=== PATIENT | male | born 1970 | race Caucasian/White ===

== ENCOUNTER 2016-06-13 12:33 | Emergency (ER) | payer BC, OTHER ==
[~2016-06-13] VITALS: Ht 177.8 cm; Wt 108.9 kg
[~2016-06-13 12:33] MED LIST: ALBI30PE SQ; GLYB5TAB7 PO; METF-494 PO
[2016-06-13] MEDS ORDERED: GLIP10TA11 PO (12:46)
[2016-06-13] MEDS ORDERED: KETOROLAC TROMETHAMINE 60 MG INJ IM ONE ×2 (13:00→13:10)
[2016-06-13] MEDS ORDERED: HYDROCODONE/APAP 7.5-325MG TABLET PO PRN (13:00)
[2016-06-13] MEDS ORDERED: HYDROCODONE/APAP 7.5-325MG TABLET ONE (13:10)
--- NOTE | 2016-06-13 15:23 | NUR ---
Patient discharged to home in stable conditon. Written and verbal after care instructions given. Patient verbalizes understanding of instructions.pt walks in steady gait.
[2016-06-13 15:24] VITALS: BP 129/77
== END 2016-06-13 15:25 | disposition home or self-care (01) ==
LOC: ER 12:33
DX: S16.1XXA Strain of muscle, fascia and tendon at neck level, initial encounter (principal); S29.012A Strain of muscle and tendon of back wall of thorax, initial encounter; S39.012A Strain of muscle, fascia and tendon of lower back, initial encounter; E11.9 Type 2 diabetes mellitus without complications; R51 Headache; F17.200 Nicotine dependence, unspecified, uncomplicated; F12.10 Cannabis abuse, uncomplicated; V89.2XXA Person injured in unspecified motor-vehicle accident, traffic, initial encounter; Y93.89 Activity, other specified; Y99.8 Other external cause status; Y92.89 Other specified places as the place of occurrence of the external cause
CPT/HCPCS: 72072; 72100; A4663; J1885

== ENCOUNTER 2016-12-06 08:42 | Emergency (ER) | payer BC, OTHER ==
[~2016-12-06] VITALS: Ht 175.3 cm; Wt 108.9 kg
[~2016-12-06 08:42] MED LIST changes: +GLIP10TA11 PO
[2016-12-06] MEDS ORDERED: IV NS 1000 ML 1,000 ML IV ONE (09:45)
[2016-12-06] MEDS ORDERED: ONDANSETRON IV *ER 4 MG/2 ML VIAL IV ONE (10:10)
[2016-12-06] MEDS ORDERED: ONDANSETRON 4 MG/2 ML VIAL ONE (10:31)
[2016-12-06 10:58] LABS: BASOPHILS # (AUTO) 0.1 K/uL (0.0-8.0); BASOPHILS % (AUTO) 0.4 % (0.0-2.0); HEMATOCRIT 47.2 % (36.7-47.1); HEMOGLOBIN 15.9 g/dL (12.5-16.3); LYMPHOCYTES # (AUTO) 1.9 K/uL (20.0-40.0); MEAN CORPUSCULAR HGB CONC 34 g/dL (32.5-36.3); MEAN CORPUSCULAR VOLUME 89.1 fL (73.0-96.2); MONOCYTES # (AUTO) 1.1 K/uL (2.0-10.0); MONOCYTES % (AUTO) 6.2 % (0.0-11.0); NEUTROPHILS # (AUTO) 14.4 K/uL (1.8-8.9); NEUTROPHILS % (AUTO) 82.4 % (38.5-71.5); PLATELET COUNT (AUTO) 219 K/uL (152-348); RED BLOOD CELL COUNT(AUTO) 5.29 MIL/uL (4.06-5.63); WHITE BLOOD COUNT (AUTO) 17.5 K/uL (3.6-10.2)
--- NOTE | 2016-12-06 11:02 | NUR ---
Patient is resting comfortably on gurney & seen using his personal electronic device, NAD
[2016-12-06 11:14] LABS: CREATININE 1.1 mg/dL (0.6-1.3); POTASSIUM 3.8 mmol/L (3.5-5.1)
[2016-12-06] MEDS ORDERED: KETOROLAC TROMETHAMINE 30 MG INJ IVP ONE (11:15)
--- NOTE | 2016-12-06 11:20 | NUR ---
Lights dimmed & extra warm blankets on, safety and comfort measures maintained.
[2016-12-06 11:23] LABS: BILIRUBIN,TOTAL 0.6 mg/dL (0.2-1.0); TOTAL PROTEIN, SERUM 7.4 g/dL (6.4-8.2)
[2016-12-06] MEDS ORDERED: KETOROLAC TROMETHAMINE 30 MG INJ ONE (11:27)
--- NOTE | 2016-12-06 12:19 | NUR ---
IV removed. Catheter intact and site benign. Pressure and 4x4 gauze applied to site. No bleeding noted. Patient discharged to home in stable conditon. Written and verbal after care instructions given to patient. Patient verbalizes understanding of instructions.
== END 2016-12-06 12:20 | disposition home or self-care (01) ==
LOC: ER 08:42
DX: S00.83XA Contusion of other part of head, initial encounter (principal); E11.9 Type 2 diabetes mellitus without complications; F17.200 Nicotine dependence, unspecified, uncomplicated; Y08.89XA Assault by other specified means, initial encounter; Y93.89 Activity, other specified; Y92.9 Unspecified place or not applicable; Y99.9 Unspecified external cause status
CPT/HCPCS: 36415; 70450; 70486; 71010; 85025; 93005; A4663; J1885; J2405; J7030

== ENCOUNTER 2017-07-11 02:27 | Emergency (ER) | payer OTHER ==
[~2017-07-11] VITALS: Ht 177.8 cm; Wt 104.3 kg
[2017-07-11] MEDS ORDERED: BENAZEPRIL HCL 10 MG TABLET (02:47)
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
--- NOTE | 2017-07-11 02:49 | NUR ---
Dr. Day at bedside for MSE.
--- NOTE | 2017-07-11 03:06 | NUR ---
Pt out of ER for Xray via wheelchair.
--- NOTE | 2017-07-11 03:50 | NUR ---
Patient discharged to home in stable conditon. Written and verbal after care instructions given. Patient verbalizes understanding of instructions. Patient ambulated out of ER with steady gait, no acute signs of distress, VSS, all belongings taken, patient provided CD of Xrays.
[2017-07-11 03:54] VITALS: BP 138/70
== END 2017-07-11 03:54 | disposition home or self-care (01) ==
LOC: ER 02:33
DX: M54.5 Low back pain (principal); I10 Essential (primary) hypertension; E11.9 Type 2 diabetes mellitus without complications; F17.210 Nicotine dependence, cigarettes, uncomplicated; F12.10 Cannabis abuse, uncomplicated; Z79.899 Other long term (current) drug therapy; Z79.84 Long term (current) use of oral hypoglycemic drugs
CPT/HCPCS: 72100; 99284; A4663

== ENCOUNTER 2022-06-03 17:54 | Emergency (ER) | payer OTHER ==
[~2022-06-03] VITALS: Ht 167.6 cm; Wt 90.7 kg
[~2022-06-03 17:54] MED LIST changes: -ALBI30PE SQ; +ALBI30PE3 SQ; +BENAZEPRIL HCL 10 MG TABLET
--- NOTE | 2022-06-03 18:54 | NUR ---
seen and examined by MD Farrar
[2022-06-03 19:56] VITALS: BP 151/91
== END 2022-06-03 19:56 | disposition home or self-care (01) ==
LOC: ER 17:56
DX: L03.012 Cellulitis of left finger (principal); E11.9 Type 2 diabetes mellitus without complications; F17.210 Nicotine dependence, cigarettes, uncomplicated; Z79.899 Other long term (current) drug therapy
CPT/HCPCS: A4663

== ENCOUNTER 2022-09-15 13:50 | Emergency (ER) | payer OTHER ==
[~2022-09-15] VITALS: Ht 175.3 cm; Wt 97.5 kg
--- NOTE | 2022-09-15 14:45 | NUR ---
Dr Brown at the bedside for MSE.
[2022-09-15] MEDS ORDERED: AMOXICILLIN-CLAVUL 875-125MG TABLET PO ONE (15:00)
[2022-09-15] MEDS ORDERED: AMOXICILLIN-CLAVUL 875-125MG TABLET ONE (15:00)
[2022-09-15] MEDS ORDERED: TDAP DIPH,PERTUSS,TET VAC/PF 0.5 ML DISP.SYRIN IM ONE ×2 (15:00)
[2022-09-15] MEDS ORDERED: AMOX-430 PO ×2 (15:01→15:15)
--- NOTE | 2022-09-15 15:20 | NUR ---
Patient discharged to home in stable condition. Written and verbal after care instructions given. Patient verbalizes understanding of instructions. Stressed follow up or return to ER for worsening s/s.
[2022-09-15 15:21] VITALS: BP 119/60; O2SAT 99
== END 2022-09-15 15:21 | disposition home or self-care (01) ==
LOC: ER 13:50
DX: S51.851A Open bite of right forearm, initial encounter (principal); L08.9 Local infection of the skin and subcutaneous tissue, unspecified; W55.01XA Bitten by cat, initial encounter; Y93.89 Activity, other specified; Y92.89 Other specified places as the place of occurrence of the external cause; Y99.8 Other external cause status; E11.9 Type 2 diabetes mellitus without complications; F17.210 Nicotine dependence, cigarettes, uncomplicated; Z79.84 Long term (current) use of oral hypoglycemic drugs; Z79.899 Other long term (current) drug therapy
CPT/HCPCS: 90715; A4663